=== PATIENT | male | born 1935 | race African-American/Black ===

== ENCOUNTER 2016-08-19 17:48 | Emergency (ER) | payer OTHER ==
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
[2016-08-19] MEDS ORDERED: AMLODIPINE PO (18:01)
[2016-08-19] MEDS ORDERED: [UNRECOGNIZED DRUG - OTHER] PO (18:01)
[2016-08-19] MEDS ORDERED: ATORVASTATIN PO (18:01)
[2016-08-19] MEDS ORDERED: HCTZ/TRIAMTERENE PO (18:02)
[2016-08-19] MEDS ORDERED: CYANOCOBALAMIN PO (18:02)
[2016-08-19] MEDS ORDERED: LISINOPRIL PO (18:03)
[2016-08-19] MEDS ORDERED: HYDROCODONE PO (18:03)
[2016-08-19] MEDS ORDERED: HYDRALAZINE PO (18:03)
[2016-08-19] MEDS ORDERED: LATANOPROST EYE (18:03)
[2016-08-19] MEDS ORDERED: METOPROLOL PO (18:04)
== END 2016-08-19 19:28 | disposition home or self-care (01) ==
LOC: SED 17:48
DX: S16.1XXA Strain of muscle, fascia and tendon at neck level, initial encounter (principal); I10 Essential (primary) hypertension; V43.52XA Car driver injured in collision with other type car in traffic accident, initial encounter
CPT/HCPCS: 72040; 99284